=== PATIENT | male | born 1990 | race Two or more races ===

== ENCOUNTER 2021-10-10 09:47 | Emergency (ER) | payer MEDICAID, OTHER ==
[~2021-10-10] VITALS: Ht 182.9 cm; Wt 108.9 kg
[2021-10-10] MEDS ORDERED: HYDROcodone-ACET 10/325MG TAB PO ONE (12:15)
[2021-10-10 14:25] VITALS: BP 128/66
== END 2021-10-10 14:25 | disposition home or self-care (01) ==
LOC: ER 09:47 → EDBD 09:47 → ER 14:25
DX: S42.002A Fracture of unspecified part of left clavicle, initial encounter for closed fracture (principal); S22.42XA Multiple fractures of ribs, left side, initial encounter for closed fracture; S43.102A Unspecified dislocation of left acromioclavicular joint, initial encounter; V23.4XXA Motorcycle driver injured in collision with car, pick-up truck or van in traffic accident, initial encounter; Y93.89 Activity, other specified; Y92.410 Unspecified street and highway as the place of occurrence of the external cause; Y99.8 Other external cause status
CPT/HCPCS: 71250; 73030; 93005